=== PATIENT | female | born 1980 | race Caucasian/White ===

== ENCOUNTER 2022-01-12 02:44 | Inpatient (IN) ==
[2022-01-12] MEDS ORDERED: *HR* HYDROmorphone (PF) 1 MG/ML SYRINGE IVP ONE ×4 (03:10→07:45)
[2022-01-12] MEDS ORDERED: 0.9 % Sodium Chloride 1,000 ML IV ONE ×2 (03:10→06:02)
[2022-01-12] MEDS ORDERED: Ondansetron 4 MG/2 ML VIAL IVP ONE (03:10)
[2022-01-12] MEDS ORDERED: Isovue-370 500 ML BOTTLE IVP ONE ×2 (03:11→09:42)
[2022-01-12 03:39] LABS: Bilirubin,Urine Negative (Negative); Blood,Urine Negative (Negative); Clarity,Urine Clear (Clear); Color,Urine Light-Yellow (Yellow); Glucose,Urine (UA) Normal (Normal); Ketones,Urine Negative (Negative); Leukocyte Esterase,Urine Negative (Negative); Nitrite,Urine Negative (Negative); Protein,Urine Negative (Neg-Trace); Specific Gravity,Urine 1.015 (1.010-1.025); Urobilinogen,Urine Normal (Normal)
[2022-01-12 04:02] LABS: Basophils % 0.2 %; Eosinophils # 0.1 K/mcL (0.0-0.6); Eosinophils % 0.9 %; Hematocrit 40.8 % (35.3-44.9); Hemoglobin 13.7 g/dL (11.5-15.4); Immature Granulocytes % 0.4 % (0-4); Lymphocytes # 1.3 K/mcL (0.6-4.6); Mean Corpuscular HGB Conc 33.6 g/dL (31.6-35.5); Mean Corpuscular Hemoglobin 29.5 pg (28.0-33.3); Mean Corpuscular Volume 87.9 fL (83.0-100.0); Monocytes % 7.4 %; Neutrophils # 11.5 K/mcL (1.6-8.9); Platelet Count 257 K/mcL (140-400); Red Blood Count 4.64 M/mcL (3.82-4.97); Red Cell Distribution Width 12.5 % (11.5-14.5); Segmented Neutrophils % 82.1 %
[2022-01-12 04:11] LABS: INR 1.1; Prothrombin Time 11.8 Seconds (9.4-12.1)
[2022-01-12 04:23] LABS: Alanine Aminotransferase 7 Units/L (7-52); Albumin 4.1 g/dL (3.5-5.7); Albumin/Globulin Ratio 1.4 (1.1-2.2); Alkaline Phosphatase 57 Units/L (34-104); Aspartate Amino Transferase 10 Units/L (13-39); BUN/Creatinine Ratio 13 (6-26); Bilirubin,Direct 0.1 mg/dL (0.0-0.2); Bilirubin,Indirect 0.6 mg/dL (0.0-1.0); Bilirubin,Total 0.7 mg/dL (0.3-1.0); Blood Urea Nitrogen 9 mg/dL (6-20); Calcium 9.5 mg/dL (8.6-10.3); Carbon Dioxide 22 mEq/L (23-29); Chloride 103 mEq/L (98-107); Glucose 106 mg/dL (70-105); Lipase 5 Units/L (11-82); Osmolality,Calculated 283 (280-300); Potassium 3.7 mEq/L (3.5-5.1); Sodium 137 mEq/L (136-145); Total Protein 7.1 g/dL (6.4-8.9); Troponin I < 0.03 ng/mL (< 0.04); eGFR For African Americans > 60 (> 60); eGFR For Non-African Americans > 60 (> 60)
[2022-01-12] MEDS ORDERED: cefTRIAXone 1,000 MG in Water for inj. (sterile) 10 ML IVP ONE (06:01)
[2022-01-12] MEDS ORDERED: MetroNIDAZOLE 500 MG/100 ML 500 MG/100 ML BAG IVPB ONE (06:01)
[2022-01-12] MEDS ORDERED: Famotidine 20 MG/2 ML VIAL IVP ONE (08:07)
[2022-01-12] MEDS ORDERED: *HR* HYDROcodone/Acet 7.5/325 mg TABLET PO PRN (08:07)
[2022-01-12] MEDS ORDERED: *HR* HYDROmorphone (PF) 1 MG/ML SYRINGE IVP PRN ×2 (08:07→08:38)
[2022-01-12] MEDS: Piperacillin/Tazobactam 3.375 GM in 0.9 % Sodium Chloride Mini Bag 100 ML IVPB SCH ×3 (09:05→23:47)
[2022-01-12] MEDS: Ibuprofen 600 MG TABLET PO SCH ×3 (09:07→21:39)
[2022-01-12] MEDS: polyethylene glycoL 3350 17 GM POWD.PACK PO SCH (09:07)
[2022-01-12] MEDS: Ringers Solution, Lactated 1,000 ML IVC SCH (09:07)
[2022-01-12] MEDS: Acetaminophen 325 MG TABLET PO SCH ×3 (10:19→21:39)
[2022-01-12] MEDS: Nicotine 21 MG PATCH.TD24 TD SCH (10:20)
[2022-01-12] MEDS: Ondansetron 4 MG/2 ML VIAL IVP PRN (10:59)
[2022-01-12] MEDS: *HR* HYDROmorphone (PF) 1 MG/ML SYRINGE IVP PRN ×6 (11:57→23:59)
[2022-01-13] MEDS: *HR* HYDROmorphone (PF) 1 MG/ML SYRINGE IVP PRN ×5 (04:02→11:26)
[2022-01-13] MEDS: Ringers Solution, Lactated 1,000 ML IVC SCH (05:39)
[2022-01-13] MEDS: Ondansetron 4 MG/2 ML VIAL IVP PRN (08:02)
[2022-01-13] MEDS ORDERED: Isovue-300 50ML VIAL ONE (08:05)
[2022-01-13] MEDS: Piperacillin/Tazobactam 3.375 GM in 0.9 % Sodium Chloride Mini Bag 100 ML IVPB SCH ×2 (08:22→21:31)
[2022-01-13] MEDS ORDERED: Lidocaine -MPF 2% 2 ML VIAL ONE (08:48)
[2022-01-13] MEDS ORDERED: *HR* Midazolam HCl 2 MG/2 ML VIAL ONE (08:48)
[2022-01-13] MEDS ORDERED: Ondansetron 4 MG/2 ML VIAL ONE (08:48)
[2022-01-13] MEDS ORDERED: *HR* Succinylcholine 200 MG/10 ML VIAL IVP ONE (08:48)
[2022-01-13] MEDS ORDERED: *HR* Propofol 200 MG/20 ML VIAL IVP ONE (08:48)
[2022-01-13] MEDS ORDERED: *HR* FentaNYL (PF) 100 MCG/2 ML VIAL ONE (08:48)
[2022-01-13] MEDS ORDERED: Ketamine HCL *QUVA* 50mg (1mL) SYRINGE ONE (08:48)
[2022-01-13] MEDS ORDERED: Lidocaine HCL 4 ML Topical Solution (Laryng-O-Jet Kit Sterile Pak) TP ONE (09:29)
[2022-01-13] MEDS ORDERED: *HR* Nalbuphine 10 MG/ML AMPUL ONE (10:39)
[2022-01-13] MEDS ORDERED: Famotidine 20 MG/2 ML VIAL IVP ONE (10:59)
[2022-01-13] MEDS ORDERED: Acetaminophen IV 1,000 MG/100 ML BAG IVPB ONE (10:59)
[2022-01-13] MEDS ORDERED: Ondansetron 4 MG/2 ML VIAL IVP PRN (10:59)
[2022-01-13] MEDS ORDERED: *HR* Labetalol 20 MG/4 ML SYRINGE IVP PRN (10:59)
[2022-01-13] MEDS ORDERED: Ketorolac 30 MG/ML VIAL IVP PRN (10:59)
[2022-01-13] MEDS ORDERED: *HR* HYDROmorphone 2 MG TABLET PO PRN (10:59)
[2022-01-13] MEDS ORDERED: *HR* OxyCODONE Immed Rel 5 MG TABLET PO PRN (10:59)
[2022-01-13] MEDS ORDERED: Promethazine 6.25 MG in Water for inj. (sterile) 20 ML IVPB PRN (11:00)
[2022-01-13] MEDS: Nicotine 21 MG PATCH.TD24 TD SCH (12:26)
[2022-01-13] MEDS: polyethylene glycoL 3350 17 GM POWD.PACK PO SCH (12:26)
[2022-01-13] MEDS: Hyoscyamine SL 0.125 MG TAB.SUBL SL PRN ×2 (13:06→21:31)
[2022-01-13] MEDS: *HR* HYDROcodone/Acet 5/325 mg TABLET PO PRN ×2 (14:03→21:31)
[2022-01-13] MEDS: Ibuprofen 600 MG TABLET PO SCH (18:50)
[2022-01-13] MEDS: Acetaminophen 325 MG TABLET PO SCH (18:51)
[2022-01-14] MEDS: Ondansetron 4 MG/2 ML VIAL IVP PRN (00:27)
[2022-01-14] MEDS: *HR* HYDROmorphone (PF) 1 MG/ML SYRINGE IVP PRN (00:30)
[2022-01-14] MEDS: Ringers Solution, Lactated 1,000 ML IVC SCH (00:37)
[2022-01-14] MEDS: Ibuprofen 600 MG TABLET PO SCH ×2 (02:06→09:40)
[2022-01-14] MEDS: *HR* HYDROcodone/Acet 5/325 mg TABLET PO PRN (05:24)
[2022-01-14] MEDS: Piperacillin/Tazobactam 3.375 GM in 0.9 % Sodium Chloride Mini Bag 100 ML IVPB SCH (05:25)
[2022-01-14 05:35] VITALS: TEMP 98.3
[2022-01-14 08:42] VITALS: BP 120/67; PULSE 63; O2SAT 100
== END 2022-01-14 10:02 | disposition home or self-care (01) | DRG 863 ==
LOC: 1NENUPED 02:44 → EMEROOARM 02:44 → 1NENUPED 07:58
PROVIDERS: ADMIT Obstetrics & Gynecology; ATTEND Obstetrics & Gynecology